=== PATIENT | male | born 1945 | race Caucasian/White ===

== ENCOUNTER 2021-06-10 17:31 | Inpatient (IN) | payer MEDICARE ==
[~2021-06-10] VITALS: Ht 182.9 cm; Wt 87.0 kg
--- NOTE | 2021-06-10 18:28 | PHYS DOC ---
Past History Past Surgical History: No Surgical History Adult General Chief Complaint Chief Complaint: BLOOD IN URINE HPI HPI Patient is a 76-year-old male who presents with a day of dysuria and some hematuria. Denies any recent travel, traumas, illnesses, fevers, chest pain, shortness of breath, abdominal pain, diarrhea or blood in the stool. Review of Systems Review of Systems Review of systems otherwise unremarkable except noted in HPI Allergies Allergies Allergies Coded Allergies Type Severity Reaction Last Updated Verified No Known Drug Allergies 06/10/21 No Physical Exam Physical Exam Constitutional: Well developed, well nourished, no acute distress, non-toxic appearance. [] HENT: Normocephalic, atraumatic, bilateral external ears normal, oropharynx moist, no oral exudates, nose normal. [] Eyes: PERRLA, EOMI, conjunctiva normal, no discharge. [] Neck: Normal range of motion, no tenderness, supple, no stridor. [] Cardiovascular:Heart rate regular rhythm, no murmur [] Lungs & Thorax: Bilateral breath sounds clear to auscultation [] Abdomen: Bowel sounds normal, soft, no tenderness, no masses, no pulsatile masses. [] Skin: Warm, dry, no erythema, no rash. [] Back: No tenderness, no CVA tenderness. [] Extremities: No tenderness, no cyanosis, no clubbing, ROM intact, no edema. [] Neurologic: Alert and oriented X 3, normal motor function, normal sensory function, no focal deficits noted. [] Psychologic: Affect normal, judgement normal, mood normal. [] Current Patient Data Vital Signs Vital Signs Date Time Temp Pulse Resp B/P (MAP) Pulse Ox O2 Delivery O2 Flow Rate FiO2 06/10/21 17:49 98.6 104 16 166/88 (114) 97 Room Air EKG EKG [] Radiology/Procedures Radiology/Procedures [] Heart Score C/O Chest Pain: No Risk Factors: Risk Factors: DM, Current or recent (<one month) smoker, HTN, HLP, family history of CAD, obesity. Risk Scores: Risk Factors: DM, Current or recent (<one month) smoker, HTN, HLP, family history of CAD, obesity. Course & Med Decision Making Course & Med Decision Making Patient is a 76-year-old male who presents with dysuria and hematuria [] Vital signs notable for tachycardia and hypertension. Physical exam noted above. EKG with a rate of 98, QRS of 88, QTc of 421, no STEMI. Troponin not concerning. Laboratory analysis notable for neutrophilic leukocytosis and hematuria with b acteria, increased white blood cell count. Patient started on antibiotics. Urine culture sent. Started on IV fluid. Discussed findings with patient recommended admission. Patient grateful, verbalized understanding and agreed with plan of admission. Dragon Disclaimer Dragon Disclaimer This electronic medical record was generated, in whole or in part, using a voice recognition dictation system. Departure Departure: Impression: Primary Impression: Sepsis Additional Impression: UTI (urinary tract infection) Disposition: ADMITTED INPATIENT Admitting Physician: Kye Baires Condition: STABLE Referrals: DORENE DORSEY MD (PCP) Problem Qualifiers ARABELLA KERN MD Jun 10, 2021 18:28
[2021-06-10 19:01] LABS: BASO # 0.1 x10^3/uL (0.0-0.2); BASO % 0 % (0-3); EOS % 0 % (0-3); HEMATOCRIT 44.4 % (39.0-53.0); HEMOGLOBIN 15.1 g/dL (13.0-17.5); LYMPH # 1.1 x10^3/uL (1.0-4.8); LYMPH % 5 % (24-48); MEAN CORPUSCULAR HEMOGLOBIN 32 pg (25-35); MEAN CORPUSCULAR HGB CONC 34 g/dL (31-37); MEAN CORPUSCULAR VOLUME 95 fL (79-100); MONO # 1.2 x10^3/uL (0.0-1.1); MONO % 6 % (0-9); NEUT # 18.1 x10^3uL (1.8-7.7); NEUT % 88 % (31-73); PLATELET COUNT 164 x10^3/uL (140-400); RED BLOOD COUNT 4.69 x10^6/uL (4.30-5.70); RED CELL DISTRIBUTION WIDTH 12.4 % (11.5-14.5)
--- NOTE | 2021-06-10 19:02 | RAD ---
Exam: Chest one view INDICATION: Palpitations TECHNIQUE: Frontal view of the chest Comparisons: None FINDINGS: The cardiomediastinal silhouette and pulmonary vessels are within normal limits. The lung and pleural spaces are clear. IMPRESSION: No acute cardiopulmonary process. Electronically signed by: Patti Bruno MD (06/10/2021 6:59 PM) ZACK
[2021-06-10 19:11] LABS: CALCIUM 9.2 mg/dL (8.5-10.1); CREATININE 0.9 mg/dL (0.7-1.3)
[2021-06-10 19:14] LABS: BILIRUBIN,URINE NEG (NEG); CLARITY,URINE CLOUDY; COLOR,URINE BROWN; GLUCOSE,URINE NEG (NEG); NITRITE,URINE NEG (NEG); RBC,URINE >40 /HPF (0-2); UROBILINOGEN,URINE 0.2 mg/dL (0.2 mg/dL)
[2021-06-10 19:15] LABS: BACTERIA,URINE MANY /HPF (0-FEW); SQUAMOUS EPITHELIAL CELL,UR OCC /LPF; WBC,URINE 20-40 /HPF (0-4)
[2021-06-10 19:17] LABS: ALBUMIN 4.4 g/dL (3.4-5.0); ALBUMIN/GLOBULIN RATIO 1.7 (1.0-1.7)
[2021-06-10 19:30] LABS: % BANDS 2 % (0-9); % LYMPHS 8 % (24-48); % MONOS 4 % (0-10); % SEGS 86 % (35-66); PLT ESTIMATE ADEQUATE (ADEQUATE); WHITE BLOOD COUNT 20.5 x10^3/uL (4.0-11.0)
[2021-06-10] MEDS ORDERED: IV RINGERS SOLUTION,LACTATED 1,000 ML IV ONE (19:45)
[2021-06-10] MEDS ORDERED: IV NORMAL SALINE 50ML 50 ML ONE (20:02)
[2021-06-10] MEDS ORDERED: cefTRIAXone SODIUM 1 GM VIAL ONE (20:02)
[2021-06-10 21:25] VITALS: BP 157/81
[2021-06-10] MEDS ORDERED: OMEG100021 PO (21:36)
[2021-06-10] MEDS ORDERED: FLUT15.812 NS (21:36)
[2021-06-10] MEDS ORDERED: SIMV20TA18 PO (21:36)
[2021-06-10] MEDS ORDERED: MULT-658 PO (21:36)
[2021-06-10] MEDS ORDERED: AMLO-186 PO (21:36)
[2021-06-10] MEDS ORDERED: LOSA100T14 PO (21:36)
[2021-06-10] MEDS ORDERED: ASPI81TA59 PO (21:36)
[2021-06-10] MEDS ORDERED: METO-239 PO (21:36)
[2021-06-10] MEDS ORDERED: FLUTICASONE 50MCG/NASAL SPRAY 16GM BOTTLE. NS PRN (21:45)
[2021-06-10] MEDS ORDERED: SIMVASTATIN 20 MG TABLET PO SCH (22:00)
[2021-06-10] MEDS ORDERED: amLODIPine BESYLATE 5 MG TABLET PO SCH (22:00)
--- NOTE | 2021-06-10 23:08 | EKG ---
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
[2021-06-10 23:47] VITALS: BP 107/62
[2021-06-11 06:10] VITALS: BP 111/65
[2021-06-11 06:43] LABS: BASO % 0 % (0-3); EOS % 0 % (0-3); HEMATOCRIT 40.3 % (39.0-53.0); HEMOGLOBIN 13.7 g/dL (13.0-17.5); LYMPH # 1.7 x10^3/uL (1.0-4.8); LYMPH % 11 % (24-48); MEAN CORPUSCULAR HEMOGLOBIN 32 pg (25-35); MEAN CORPUSCULAR HGB CONC 34 g/dL (31-37); MEAN CORPUSCULAR VOLUME 95 fL (79-100); MONO # 1.4 x10^3/uL (0.0-1.1); MONO % 9 % (0-9); NEUT % 80 % (31-73); PLATELET COUNT 155 x10^3/uL (140-400); RED BLOOD COUNT 4.26 x10^6/uL (4.30-5.70); RED CELL DISTRIBUTION WIDTH 12.3 % (11.5-14.5); WHITE BLOOD COUNT 16.2 x10^3/uL (4.0-11.0)
[2021-06-11 06:48] LABS: CALCIUM 8.6 mg/dL (8.5-10.1); CREATININE 0.8 mg/dL (0.7-1.3); POTASSIUM 3.9 mmol/L (3.5-5.1)
[2021-06-11] MEDS ORDERED: ASPIRIN CHEWABLE 81 MG TABLET. PO SCH (09:00)
[2021-06-11] MEDS ORDERED: OMEGA-3 FATTY ACIDS/FISH OIL 1,000 MG CAPSULE. PO SCH (09:00)
[2021-06-11] MEDS ORDERED: MULTIVITAMIN with MINERAL TABLET. PO SCH (09:00)
[2021-06-11] MEDS ORDERED: LOSARTAN 50 MG TABLET. PO SCH (09:00)
[2021-06-11 12:04] VITALS: BP 142/68
[2021-06-11] MEDS ORDERED: CEFD300C PO (16:05)
[2021-06-11] MEDS ORDERED: METOPROLOL SUCC 24HR ER 25 MG TAB.ER.24H. PO SCH (17:00)
--- NOTE | 2021-06-11 18:12 | SSS ---
DATE OF SERVICE: 06/11/2021 ADMIT DATE: 06/10/2021 HISTORY OF PRESENT ILLNESS: The patient is a 76-year-old male patient who presented to the Emergency Room of [facility] complaining of dysuria and some hematuria. He denied any back pain. Denied any nausea or vomiting. Denied any chills, rigors or fever. He was extensively investigated in the Emergency Room and has had lab work, which showed that his white cell count was high at 20,500. His chemistry was unremarkable. His urine showed he has 20-40 wbc's, many bacteria. The patient was treated with IV ceftriaxone and IV fluid and was admitted for further evaluation and treatment. He stated that he had a similar episode of hematuria and was admitted to [facility] in, I believe, September of this year, has had extensive investigation and was given antibiotic and was discharged home on oral antibiotic at that time. PAST MEDICAL HISTORY: Significant for hypertension, hyperlipidemia, benign prostatic hypertrophy, and atrial fibrillation. PAST SURGICAL HISTORY: Significant for vasectomy and dental work. ALLERGIES: He is allergic to CIPROFLOXACIN as well as TRIMETHOPRIM SULFAMETHOXAZOLE. MEDICATIONS: He is currently on the following medications: He is on simvastatin 20 mg at bedtime, omega 3 fatty acid 1 capsule once a day, metoprolol succinate 25 mg daily, amlodipine 5 mg once a day, losartan potassium 100 mg once a day, aspirin 81 mg once a day, Flonase 2 sprays to each nostril once a day, and multivitamin with mineral 1 tablet once a day. FAMILY HISTORY: Noncontributory. SOCIAL HISTORY: He is , had a son and that in a motor vehicle accident at the age of 19 and his daughter is alive at 52. He has 2 grandchildren. He quit smoking 36 years ago. He drinks a beer a day as allowed by his capsule maker, Dr. Riley, according to him. 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 REVIEW OF SYSTEMS: The patient denied any blurring of vision, cataracts, glaucoma or macular degeneration. Denied any earache, tinnitus, or sensory deafness. Denied any nosebleed, stuffy nose or postnasal drip. Denied any nausea, vomiting, diarrhea or constipation. Denied any hematemesis, melena or hematochezia. Did complain of dysuria and nocturia. Denied any chest pain, shortness of breath, orthopnea, paroxysmal nocturnal dyspnea. Denied any cough, phlegm, or hemoptysis. PHYSICAL EXAMINATION: GENERAL: On arrival to the Emergency Room, he looked well and was clearly in no apparent respiratory distress. There was no pallor, jaundice, cyanosis or thyromegaly. No jugular venous distention. No lower limb edema. VITAL SIGNS: His heart rate was 104, blood pressure was 166/88, temperature was 98.6, respiratory rate was 16, and oxygen saturation was 97%. HEAD, EYES, EARS, NOSE, AND THROAT: Showed normocephalic, atraumatic. NECK: Supple. HEART: Showed normal first and second heart sounds. No gallop, rub, or murmur. CHEST: Clear to auscultation. No crepitation or rhonchi. ABDOMEN: Distended, soft, nontender. NEUROLOGIC: He was grossly intact. LABORATORY DATA: His lab work on arrival showed a white cell count of 20,500, hemoglobin 15, hematocrit 44, MCV 95 and platelet count of 164,000. His chemistry showed a serum sodium 139, potassium 4, chloride 104, bicarbonate 23, anion gap of 12, BUN 19, creatinine 0.9. Estimated GFR was 82 mL per minute. His glucose was 98, calcium was 9.2. Total bilirubin, AST, ALT, alkaline phosphatase were normal. His total protein 7, albumin 4.4, and lipase 105. Urinalysis showed the urine was cloudy, pH of 5.5, specific gravity of 1.030. There was a small amount of protein. Urine was negative for glucose, small amount of ketones, large amount of blood, negative for nitrite and leukocyte esterase. There are more than 40 rbc's, 20-40 wbc's and many bacteria. His coronavirus by PCR was not detectable. He has a chest x-ray, showed that the patient's cardiomediastinal silhouette and pulmonary vessels are within normal limits. HOSPITAL COURSE: The patient was admitted with a urinary tract infection. He was started on IV fluids and treated with IV Rocephin. When I saw him this afternoon, the patient was very restless. He wants to go home as he has been stable for more than 33 hours according to him. Normally, he can sleep outside his bed. His urine was clear. There were no further episodes of hematuria or dysuria. When I examined him this afternoon, he looked well and was again in no apparent respiratory distress. No pallor, jaundice, cyanosis, or thyromegaly. No jugular venous distention. No lower limb edema. His oxygen saturation was 93%, blood pressure was 142/68, temperature 98, respiratory rate was 18. The rest of clinical exam is stable. His lab work this afternoon showed that his white cell count is down to 16,200, hemoglobin 13.7, hematocrit 40, MCV 95, and a platelet count of 155,000. His chemistry showed a serum sodium 138, potassium 3.9, chloride 104, bicarbonate 24, anion gap of 10, BUN 17, creatinine 0.8. Estimated GFR was 94 mL per minute. His glucose was 100, calcium was 8.6. His coronavirus by PCR was not detectable. DISCHARGE MEDICATIONS: The patient was discharged home to continue on cefdinir 300 mg twice a day for 7 days. Continue with his amlodipine 5 mg once a day, aspirin 81 mg once a day, Flonase 2 sprays to each nostril once a day, losartan potassium 100 mg daily, metoprolol succinate 25 mg daily multivitamin 1 tablet once a day, omega 3 fatty acid 1 capsule once a day, simvastatin 20 mg once a day. FINAL DISCHARGE DIAGNOSES: 1. Urinary tract infection. 2. Hypertension. 3. Hyperlipidemia. 4. Benign prostatic hypertrophy. 5. Atrial fibrillation. The patient was insisting that he is very tired and has not slept and would like to go home. He seemed to be hemodynamically stable, afebrile. His white cell count is responding and therefore, I discharged him to continue on oral cefdinir with a clear instruction that he should go to the nearest Emergency Room if his condition deteriorates again and that he should call us on Monday to find out the results of the culture and sensitivity to see whether we need to adjust the antibiotic, although he seemed to be responding to the ceftriaxone. JUAN CARLOS MUNGUIA: Maria Elena TID: [id number]
== END 2021-06-11 18:31 | disposition home or self-care (01) | DRG 872 ==
LOC: ER 17:31 → 1 SOUTH 19:44
PROVIDERS: ADMIT Internal Medicine; ATTEND Internal Medicine
DX: A41.9 Sepsis, unspecified organism (principal); N39.0 Urinary tract infection, site not specified; E78.5 Hyperlipidemia, unspecified; I10 Essential (primary) hypertension; I48.91 Unspecified atrial fibrillation; N40.0 Benign prostatic hyperplasia without lower urinary tract symptoms; Z87.891 Personal history of nicotine dependence; Z88.1 Allergy status to other antibiotic agents; Z20.822 Contact with and (suspected) exposure to COVID-19
CPT/HCPCS: 36415; 71045; 80048; 80053; 81001; 83690; 84484; 85007; 85025; 87077; 87086; 87186; 87426; 93005; 96365; J0696; J7120; U0003; 99285-25